=== PATIENT | female | born 2000 | race Caucasian/White ===

== ENCOUNTER 2021-07-26 02:03 | Emergency (ER) | payer BC ==
[~2021-07-26] VITALS: Ht 167.6 cm; Wt 137.5 kg
[2021-07-26 02:11] VITALS: BP 142/88
--- NOTE | 2021-07-26 02:11 | NUR ---
TO BED AMBULATORY
--- NOTE | 2021-07-26 02:20 | NUR ---
COVERING PRIMARY RN FOR LUNCH RELIEF. SEE COMPLETE ASSESSMENT.
--- NOTE | 2021-07-26 02:22 | NUR ---
DR. DAMON AT BEDSIDE FOR EVALUATION
[2021-07-26] MEDS ORDERED: DICYCLOMINE HCL LIQUID 20 MG, ALUMINUM HYD/MAG/SIMETHICONE 30 ML, LIDOCAINE VISCOUS 2% ... PO ONE ×3 (02:30)
--- NOTE | 2021-07-26 02:30 | NUR ---
DOOR CLAMPER AT BEDSIDE FOR BLOOD DRAW.
[2021-07-26] MEDS ORDERED: DICYCLOMINE HCL LIQUID 10 MG/5 ML UDC ONE (02:33)
[2021-07-26] MEDS ORDERED: ALUMINUM HYD/MAG/SIMETHICONE 30 ML UDC ONE (02:33)
[2021-07-26 02:39] LABS: BASOPHILS % (AUTO) 0.4 % (0.0-2.0); EOSINOPHILS # (AUTO) 0.3 K/uL (0-0.4); EOSINOPHILS % (AUTO) 2.7 % (0.0-4.0); HEMATOCRIT 40.6 % (36-48); HEMOGLOBIN 13.2 g/dL (12.0-16.0); LYMPHOCYTES # (AUTO) 2.5 K/uL (2.5-16.5); LYMPHOCYTES % (AUTO) 23.1 % (20.5-51.1); MEAN CORPUSCULAR HEMOGLOBIN 26 pg (27-31); MEAN CORPUSCULAR HGB CONC 33 g/dL (33-37); MEAN CORPUSCULAR VOLUME 78.6 fL (80-94); MONOCYTES # (AUTO) 0.8 K/uL (0.8-1.0); MONOCYTES % (AUTO) 7.6 % (1.7-9.3); NEUTROPHILS # (AUTO) 7.3 K/uL (1.8-7.7); NEUTROPHILS % (AUTO) 66.2 % (42.2-75.2); PLATELET COUNT (AUTO) 271 K/uL (140-450); RED BLOOD CELL COUNT(AUTO) 5.16 MIL/uL (4.20-5.40); RED CELL DISTRIBUTION WIDTH 15.1 % (11.6-13.7)
--- NOTE | 2021-07-26 03:10 | NUR ---
PATIENT REPORTS PAIN AND NAUSEA IMPROVEMENT. PATIENT UNABLE TO URINATE AT THIS TIME BUT WILL ATTEMPT SOON. PATIENT SITTING IN BED LOCKED IN LOWEST POSITION W X1 SIDERAIL UP. BREATHING EVEN AND UNLABORED. NAD NOTED, WILL CONTINUE TO MONITOR.
[2021-07-26 03:17] LABS: ALBUMIN 3.4 g/dL (3.4-5.0); ANION GAP 15.2 (8-16); CARBON DIOXIDE 24.6 mmol/L (21-32); CREATININE 0.7 mg/dL (0.6-1.3); POTASSIUM 3.8 mmol/L (3.5-5.1); TOTAL BILIRUBIN 0.2 mg/dL (0.0-1.0)
[2021-07-26] MEDS ORDERED: MAG-27 PO (04:34)
[2021-07-26] MEDS ORDERED: ONDA-24 PO (04:34)
[2021-07-26 04:49] VITALS: BP 130/80
--- NOTE | 2021-07-26 04:49 | NUR ---
Patient discharged with v/s stable. Written and verbal after care instructions given and explained. Patient alert, oriented and verbalized understanding of instructions. Ambulatory with . All questions addressed prior to discharge. ID band removed. Patient advised to follow up with PMD. Rx of JAYLEEN PFEIFFER given. Patient educated on indication of medication including possible reaction and side effects. Opportunity to ask questions provided and answered.
== END 2021-07-26 04:49 | disposition home or self-care (01) ==
LOC: MED 02:03
DX: R10.10 Upper abdominal pain, unspecified (principal); R11.0 Nausea; Z79.899 Other long term (current) drug therapy
CPT/HCPCS: 36415; 80053; 81002; 81025; 83690; 85025; 99283

== ENCOUNTER 2024-02-05 12:39 | Emergency (ER) | payer BC, OTHER ==
[~2024-02-05] VITALS: Ht 167.6 cm; Wt 86.2 kg
[~2024-02-05 12:39] MED LIST: MAG-27 PO; ONDA-188 PO
[2024-02-05 13:04] VITALS: BP 108/73; PULSE 60; RESP 18
[2024-02-05] MEDS: LIDOCAINE MPF 1% 10 MG/ML VIAL INJ ONE (13:52)
[2024-02-05] MEDS: BACITRACIN OINT 500 UNITS/GM PKT TP ONE (14:33)
[2024-02-05] MEDS ORDERED: SULF-59 PO (14:34)
== END 2024-02-05 14:56 | disposition home or self-care (01) ==
LOC: MED 12:39
DX: T16.1XXA Foreign body in right ear, initial encounter (principal); Z79.899 Other long term (current) drug therapy; W44.8XXA Other foreign body entering into or through a natural orifice, initial encounter; Y93.89 Activity, other specified; Y92.89 Other specified places as the place of occurrence of the external cause; Y99.8 Other external cause status
CPT/HCPCS: 10120; 99285; J2001; 69200; 99284